=== PATIENT | female | born 2000 | race African-American/Black ===

== ENCOUNTER 2023-08-29 09:19 | Emergency (ER) | payer BC, OTHER ==
[2023-08-29] MEDS ORDERED: Ibuprofen 800 MG TAB ONE (10:08)
== END 2023-08-29 10:38 | disposition home or self-care (01) ==
LOC: ERS 09:19
DX: S20.212A Contusion of left front wall of thorax, initial encounter (principal); V49.9XXA Car occupant (driver) (passenger) injured in unspecified traffic accident, initial encounter
CPT/HCPCS: 93005